=== PATIENT | female | born 1950 | race Asian ===

== ENCOUNTER 2022-06-26 14:10 | Outpatient (CLI) | payer MEDICARE | END 2022-06-26 14:11 | disposition home or self-care (01) | LOC: CSHCT 14:10 | PROVIDERS: ATTEND Thoracic Surgery (Cardiothoracic Vascular Surgery) | DX: I65.8 Occlusion and stenosis of other precerebral arteries (principal); I65.21 Occlusion and stenosis of right carotid artery | CPT/HCPCS: 70498; 82565 ==